=== PATIENT | male | born 1985 | race African-American/Black ===

== ENCOUNTER 2016-12-23 14:08 | Emergency (ER) | payer SELFPAY ==
[~2016-12-23] VITALS: Ht 182.9 cm; Wt 81.8 kg
[~2016-12-23 14:08] MED LIST: NAPROSYN500 MG PO; PENICILLN VK500 MG PO; PREVACID30 M3 PO; ZOFRAN ODT4 MG PO
[2016-12-23] MEDS ORDERED: ERYTHROMYCIN O3.5 GM OU (15:25)
[2016-12-23 15:35] VITALS: BP 111/74
== END 2016-12-23 15:35 | disposition home or self-care (01) | DRG 125 ==
LOC: ED 14:08
DX: H57.13 Ocular pain, bilateral (principal); S05.8X1A Other injuries of right eye and orbit, initial encounter; X58.XXXA Exposure to other specified factors, initial encounter

== ENCOUNTER 2017-04-23 19:55 | Observation (INO) | payer SELFPAY ==
[~2017-04-23] VITALS: Ht 185.4 cm; Wt 68.0 kg
[~2017-04-23 19:55] MED LIST changes: +ERYTHROMYCIN O3.5 GM OU
[2017-04-23 20:28] LABS: HEMATOCRIT 40.5 % (39.0-50.0); HEMOGLOBIN 13.7 g/dl (14.0-18.0); IMMATURE GRANULOCYTES 0.3 % (0.0-1.0); MEAN CELL VOLUME 93.5 fL CALC (80.0-100.0); MEAN CORPUSCULAR HGB 31.6 pG CALC (26.0-32.0); MEAN CORPUSCULAR HGB CONC 33.8 g/L CALC (32.0-36.0); NEUT# 1.42 thou/uL (1.82-7.42); RED BLOOD COUNT 4.33 mill/uL (4.70-6.10); RED CELL DISTRI WIDTH 12.4 % (11.5-15.5)
[2017-04-23 20:36] LABS: BARBITURATES NEGATIVE (NEGATIVE); COCAINE NEGATIVE (NEGATIVE); METHADONE NEGATIVE (NEGATIVE); OXCYCODONE NEGATIVE (NEGATIVE); TETRAHYDROCANNABIONOL NEGATIVE (NEGATIVE); TRICYLIC ANTIDEPRESSANTS NEGATIVE (NEGATIVE)
[2017-04-23 20:47] LABS: ALBUMIN 5.3 g/dL (3.2-5.0); ALKALINE PHOSPHATASE 75 u/l (38-126); ANION GAP 35 (6-22 (CALC)); BILIRUBIN, TOTAL 1.2 mg/dL (0.0-1.4); BUN 10 mg/dL (9-20); BUN/CREATININE RATIO 9 (12-20 (CALC)); CALCIUM 9.6 mg/dL (8.4-10.2); CARBON DIOXIDE 14 mmol/l (22-30); CHLORIDE 85 mmol/l (95-108); CREATININE 1.1 mg/dL (0.7-1.3); ETHYL ALCOHOL 19 mg/dl (0-30); GFR > 60 ML/MIN (>=60 (CALC)); GFR FOR AFR.AMER. > 60 ML/MIN (>=60 (CALC)); GLUCOSE 172 mg/dL (75-110); SGOT/AST 165 u/l (17-59); SGPT/ALT 121 u/l (21-72); SODIUM 131 mmol/l (137-146); TOTAL PROTEIN 8.7 g/dL (6.3-8.2)
[2017-04-24 01:20] VITALS: BP 125/78
[2017-04-24 08:09] VITALS: BP 128/86
[2017-04-24 09:03] LABS: HEMATOCRIT 41.1 % (39.0-50.0); HEMOGLOBIN 14.4 g/dl (14.0-18.0); MEAN CELL VOLUME 90.7 fL CALC (80.0-100.0); MEAN CORPUSCULAR HGB 31.8 pG CALC (26.0-32.0); RED BLOOD COUNT 4.53 mill/uL (4.70-6.10); RED CELL DISTRI WIDTH 12.4 % (11.5-15.5)
[2017-04-24 09:25] LABS: ANION GAP 16 (6-22 (CALC)); BUN 7 mg/dL (9-20); BUN/CREATININE RATIO 9 (12-20 (CALC)); CALCIUM 9.7 mg/dL (8.4-10.2); CARBON DIOXIDE 27 mmol/l (22-30); CREATININE 0.8 mg/dL (0.7-1.3); GFR > 60 ML/MIN (>=60 (CALC)); GFR FOR AFR.AMER. > 60 ML/MIN (>=60 (CALC)); GLUCOSE 85 mg/dL (75-110); MAGNESIUM 2.4 mg/dL (1.6-2.3); POTASSIUM 3.7 mmol/l (3.5-5.1); SODIUM 136 mmol/l (137-146)
[2017-04-24 09:30] LABS: CHLORIDE 97 mmol/l (95-108)
[2017-04-24 11:08] LABS: ALBUMIN 4.8 g/dL (3.2-5.0); ALKALINE PHOSPHATASE 80 u/l (38-126); BILIRUBIN, TOTAL 1.5 mg/dL (0.0-1.4); SGOT/AST 182 u/l (17-59); SGPT/ALT 118 u/l (21-72); TOTAL PROTEIN 8.2 g/dL (6.3-8.2)
[2017-04-24 11:11] VITALS: BP 118/77
[2017-04-24] MEDS ORDERED: LIBRIUM25 MG PO (14:05)
== END 2017-04-24 14:49 | disposition home or self-care (01) | DRG 101 ==
LOC: ED 19:55 → ED-I 04-24 00:10 → ED 04-24 00:48 → MS2 04-24 00:49
PROVIDERS: Emergency Medicine; Nurse Practitioner Family; ADMIT Internal Medicine; ATTEND Internal Medicine
DX: R56.9 Unspecified convulsions (principal); D69.6 Thrombocytopenia, unspecified; F10.10 Alcohol abuse, uncomplicated; F17.290 Nicotine dependence, other tobacco product, uncomplicated; D72.819 Decreased white blood cell count, unspecified; R74.8 Abnormal levels of other serum enzymes
CPT/HCPCS: G0378

== ENCOUNTER 2017-05-24 19:29 | Emergency (ER) | payer SELFPAY ==
[~2017-05-24] VITALS: Ht 185.4 cm; Wt 69.0 kg
[~2017-05-24 19:29] MED LIST changes: +LIBRIUM25 MG PO
[2017-05-24 21:33] LABS: HEMATOCRIT 38.3 % (39.0-50.0); HEMOGLOBIN 13.2 g/dl (14.0-18.0); IMMATURE GRANULOCYTES 0.2 % (0.0-1.0); MEAN CORPUSCULAR HGB 31.4 pG CALC (26.0-32.0); MEAN CORPUSCULAR HGB CONC 34.5 g/L CALC (32.0-36.0); NEUT# 3.51 thou/uL (1.82-7.42); RED BLOOD COUNT 4.21 mill/uL (4.70-6.10); RED CELL DISTRI WIDTH 13.4 % (11.5-15.5)
[2017-05-24 21:45] LABS: ALBUMIN 5.3 g/dL (3.2-5.0); ALKALINE PHOSPHATASE 83 u/l (38-126); AMYLASE 115 u/l (30-110); ANION GAP 20 (6-22 (CALC)); BILIRUBIN, TOTAL 0.8 mg/dL (0.0-1.4); BUN 11 mg/dL (9-20); BUN/CREATININE RATIO 15 (12-20 (CALC)); CALCIUM 10.2 mg/dL (8.4-10.2); CARBON DIOXIDE 30 mmol/l (22-30); CHLORIDE 90 mmol/l (95-108); CREATININE 0.7 mg/dL (0.7-1.3); GFR > 60 ML/MIN (>=60 (CALC)); GFR FOR AFR.AMER. > 60 ML/MIN (>=60 (CALC)); GLUCOSE 71 mg/dL (75-110); LIPASE 38 u/l (23-300); POTASSIUM 3.8 mmol/l (3.5-5.1); SGOT/AST 128 u/l (17-59); SGPT/ALT 129 u/l (21-72); SODIUM 135 mmol/l (137-146); TOTAL PROTEIN 8.7 g/dL (6.3-8.2)
[2017-05-25 00:10] LABS: URINE BLOOD DIPSTICK NEGATIVE (NEGATIVE); URINE GLUCOSE - DIPSTICK NEGATIVE (NEGATIVE); URINE KETONE >=80 mg/dL (NEGATIVE); URINE LEUK ESTERASE TRACE (NEGATIVE); URINE NITRITE - DIPSTICK NEGATIVE (Negative); URINE PH 7.5 (4.5-8.0); URINE PROTEIN - DIPSTICK 30 mg/dL (NEG-TRACE); URINE SPECIFIC GRAVITY 1.015
[2017-05-25 00:19] LABS: URINE BILIRUBIN - DIPSTICK NEGATIVE (NEGATIVE); URINE CLARITY CLEAR; URINE COLOR ORANGE
[2017-05-25 00:35] LABS: URINE BACTERIA FEW hpf; URINE RBC 0-2 RBC/hpf (0-5); URINE SQUAMOUS EPITHELIAL CELL FEW EPI/hpf (0-FEW)
[2017-05-25 00:36] LABS: URINE MUCUS MANY hpf (NONE-FEW)
[2017-05-25] MEDS ORDERED: ZOFRAN4 MG/TAB PO (01:53)
[2017-05-25] MEDS ORDERED: PRILOSEC20 MG PO (01:53)
[2017-05-25 02:06] VITALS: BP 128/90
== END 2017-05-25 02:04 | disposition home or self-care (01) | DRG 392 ==
LOC: ED 19:29
PROVIDERS: Emergency Medicine
DX: R10.11 Right upper quadrant pain (principal); R11.10 Vomiting, unspecified; R50.9 Fever, unspecified; R94.31 Abnormal electrocardiogram [ECG] [EKG]
CPT/HCPCS: S0164

== ENCOUNTER 2017-10-02 09:19 | Emergency (ER) | payer SELFPAY ==
[~2017-10-02] VITALS: Ht 185.4 cm; Wt 74.0 kg
[~2017-10-02 09:19] MED LIST changes: +PRILOSEC20 MG PO; +ZOFRAN4 MG/TAB PO
[2017-10-02 10:09] LABS: HEMATOCRIT 39.8 % (39.0-50.0); HEMOGLOBIN 13.1 g/dl (14.0-18.0); MEAN CELL VOLUME 93.6 fL CALC (80.0-100.0); MEAN CORPUSCULAR HGB 30.8 pG CALC (26.0-32.0); MEAN CORPUSCULAR HGB CONC 32.9 g/L CALC (32.0-36.0); NEUT# 1.08 thou/uL (1.82-7.42); RED BLOOD COUNT 4.25 mill/uL (4.70-6.10)
[2017-10-02 10:27] LABS: ALBUMIN 4.4 g/dL (3.2-5.0); ALKALINE PHOSPHATASE 65 u/l (38-126); ANION GAP 20 (6-22 (CALC)); BILIRUBIN, TOTAL 0.4 mg/dL (0.0-1.4); BUN 7 mg/dL (9-20); BUN/CREATININE RATIO 10 (12-20 (CALC)); CARBON DIOXIDE 26 mmol/l (22-30); CHLORIDE 107 mmol/l (95-108); CREATININE 0.7 mg/dL (0.7-1.3); GFR > 60 ML/MIN (>=60 (CALC)); GFR FOR AFR.AMER. > 60 ML/MIN (>=60 (CALC)); LIPASE 56 u/l (23-300); POTASSIUM 3.8 mmol/l (3.5-5.1); SGOT/AST 112 u/l (17-59); SGPT/ALT 193 u/l (21-72); SODIUM 149 mmol/l (137-146); TOTAL PROTEIN 7.9 g/dL (6.3-8.2)
[2017-10-02] MEDS ORDERED: PROTONIX40 MG PO (10:34)
[2017-10-02 10:42] VITALS: BP 136/80
== END 2017-10-02 11:29 | disposition home or self-care (01) | DRG 392 ==
LOC: ED 09:19
PROVIDERS: Emergency Medicine
DX: K29.20 Alcoholic gastritis without bleeding (principal); F17.210 Nicotine dependence, cigarettes, uncomplicated; R10.9 Unspecified abdominal pain
CPT/HCPCS: S0164

== ENCOUNTER 2017-11-05 17:55 | Emergency (ER) | payer SELFPAY ==
[~2017-11-05] VITALS: Ht 185.4 cm; Wt 72.0 kg
[~2017-11-05 17:55] MED LIST changes: +PROTONIX40 MG PO
[2017-11-05] MEDS ORDERED: NEXIUM40 M1 PO (18:16)
[2017-11-05 18:29] VITALS: BP 132/76
== END 2017-11-05 18:39 | disposition home or self-care (01) | DRG 392 ==
LOC: ED 17:55
DX: K29.20 Alcoholic gastritis without bleeding (principal); R10.13 Epigastric pain; R11.2 Nausea with vomiting, unspecified

== ENCOUNTER 2017-11-27 22:01 | Emergency (ER) | payer SELFPAY ==
[~2017-11-27] VITALS: Ht 185.4 cm; Wt 75.0 kg
[~2017-11-27 22:01] MED LIST changes: +NEXIUM40 M1 PO
[2017-11-27 22:47] LABS: IMMATURE GRANULOCYTES 0.3 % (0.0-5.0); MEAN CORPUSCULAR HGB 30.7 pG CALC (26.0-32.0); MEAN CORPUSCULAR HGB CONC 33.7 g/L CALC (32.0-36.0); RED BLOOD COUNT 5.12 mill/uL (4.70-6.10); RED CELL DISTRI WIDTH 13.1 % (11.5-15.5)
[2017-11-27 23:02] LABS: ALKALINE PHOSPHATASE 84 u/l (38-126); ANION GAP 14 (6-22 (CALC)); BILIRUBIN, TOTAL 0.3 mg/dL (0.0-1.4); BUN 9 mg/dL (9-20); BUN/CREATININE RATIO 11 (12-20 (CALC)); CARBON DIOXIDE 29 mmol/l (22-30); CHLORIDE 105 mmol/l (95-108); CREATININE 0.9 mg/dL (0.7-1.3); ETHYL ALCOHOL 298 mg/dl (0-30); GFR > 60 ML/MIN (>=60 (CALC)); GFR FOR AFR.AMER. > 60 ML/MIN (>=60 (CALC)); POTASSIUM 4.2 mmol/l (3.5-5.1); SGOT/AST 124 u/l (17-59); SGPT/ALT 106 u/l (21-72); SODIUM 144 mmol/l (137-146)
[2017-11-27 23:05] LABS: TOTAL PROTEIN 9.5 g/dL (6.3-8.2)
[2017-11-27 23:18] LABS: HEMATOCRIT 46.6 % (39.0-50.0); HEMOGLOBIN 15.7 g/dl (14.0-18.0)
[2017-11-27 23:19] LABS: PLATELET COUNT 137 thou/uL (130-400)
[2017-11-27 23:20] LABS: MANUAL DIFFERENTIAL YES; PLATELET ESTIMATE NORMAL
[2017-11-27 23:30] VITALS: BP 120/86
== END 2017-11-27 23:32 | DRG 897 ==
LOC: ED 22:01
PROVIDERS: Emergency Medicine
DX: F10.129 Alcohol abuse with intoxication, unspecified (principal); F17.210 Nicotine dependence, cigarettes, uncomplicated